=== PATIENT | female | born 1960 | race Caucasian/White ===

== ENCOUNTER 2017-02-15 08:52 | Emergency (ER) | payer OTHER ==
[~2017-02-15] VITALS: Ht 188 cm; Wt 65.9 kg
[~2017-02-15 08:52] MED LIST: CLONAZEPAM1 M1 PO; COL100L PO; LORA-302 PO; MOM PO; TYL325 PO; VICODIN 5-3251 EACH PO
[2017-02-15 08:59] VITALS: BP 151/88; PULSE 89; RESP 20; O2SAT 99
--- NOTE | 2017-02-15 09:09 | ED.REPORT ---
HPI-Extremity Problem Lower Date of Service Feb 15, 2017 ED Provider: Dr. Cm Kelly MD A 56 year old female with no pertinent medical history presents to the ED complaining of left leg redness that first appeared 3 days ago. Patient typically dances 4-5 times per week and initially believed that she pulled a muscle but noticed a blister that appeared a few days ago. Recent associated symptoms include worsening redness, warmth, swelling, pain and a subjective fever. She denies any shaking chills, nausea, vomiting, diarrhea or abdominal pain. Patient denies any sudden onset injury that initiated the pain. Nursing Notes Stated Complaint: LEFT LEG INFECTION Chief Complaint: Extremity Trauma Nursing Notes Reviewed: Yes Allergies: Coded Allergies: Nitrofurantoin Macrocrystal (Verified Allergy, Intermediate, Rash, 02/15/17) Sulfa (Sulfonamide Antibiotics) (Verified Allergy, Unknown, RASH, 02/15/17) Scheduled Cephalexin (Cephalexin) 500 Mg Capsule 500 MG PO QID ClonazePAM-Expunged Drug, Do Not Renew! (ClonazePAM-Expunged Drug, Do Not Renew! ) 1 Mg Tablet 1 MG PO HS Docusate Sod-Expunged Drug, Do Not Renew! (Docusate Sod-Expunged Drug, Do Not Renew!) 10 Mg/1 Ml Liqd 100 MG PO BID Scheduled PRN Acetaminphen-Expunged Drug, Do Not Renew! (Acetaminphen-Expunged Drug, Do Not Renew!) 325 Mg Tablet 0 MG PO Q4H PRN PRN Hydrocod/APAP-Expunged, Do Not Renew! (VICODIN 5/325-Expunged Drug, Do Not Renew ) 1 Each Tablet 0 EA PO Q3H PRN PRN Lorazepam-Expunged Drug, Do Not Renew! (Lorazepam-Expunged Drug, Do Not Renew!) 0.5 Mg Tablet 0 MG PO Q4H PRN PRN Milk Of Magnesia (Milk Of Magnesia) 10 Ml Conc 10 ML PO DAILY PRN PRN General Time Seen by MD: 09:08 Chief Complaint Leg injury left Hx Obtained From: Patient Arrived By: Walk-in Onset Occurred: 3 days ago Symptom Duration: Since onset Location: : Leg left Quality: Painful Severity: Current: Moderate Severity: Maximum: Moderate Associated with: Reports: Fever (subjective), Swelling, Denies: Nausea, Vomiting Pertinent Negative: Pt denies other symptoms Recent Healthcare: No recent doctor visit, No recent hospitalization Past Medical History Past Medical History 1. Anxiety 2. Morbid obesity 3. Alcohol dependency Past Surgical History 1. Open reduction and internal fixation right ankle. 2. Syndesmosis fixation. 3. Medial deltoid ligament reconstruction. Smoking History Unknown if Ever Smoker Social History Other Social History: Good social support, Local resident Ambulatory Status Independent Review of Systems Constitutional: Reports: Chills, Fever (subjective) Musculoskeletal: Reports: Extremity pain (LLE), Extremity swelling (LLE) Skin: Reports Rash, Reports Swelling Complete sys rev & neg: except as marked. GI: Denies: Abdominal pain, Nausea, Vomiting Physical Exam Initial Vital Signs Vital Signs (First) Date Time Temp Pulse Resp B/P Pulse Ox O2 Delivery O2 Flow Rate FiO2 02/15/17 08:59 37.2 89 20 151/88 99 Room Air Initial VS: Reviewed Head / Eyes: Atraumatic, Normocephalic, PERRL Neck: Supple, Non-tender, Full range of motion Upper Extremities: Vascular intact, Neuro intact, No swelling, No tenderness Skin: Warm, Dry, No cyanosis Neurologic: Alert, Oriented, Nonfocal Psychiatric: Mood/affect normal, Behavior normal, Normal thought content Lower Extremity / Pelvis / MS: Atraumatic, Neurologic intact, Vascular intact Left Leg / Calf: Positive: Erythema present, Swelling present..., Tenderness present... (Mild), Warmth present Ankle / Foot: Atraumatic, Inspection NL, No deformity, Neurologic intact, Vascular intact, No ligamentous injury, Tendon function NL General/Constitutional: Awake, Alert, No acute distress, Well appearing, Well developed Respiratory / Chest: Atraumatic, Breath sounds NL, Breath sounds = bilat, No respiratory distress Cardiovascular: Heart rate NL, Regular rhythm, Heart sounds NL Abdomen: Atraumatic, Soft, Non-tender Re-Eval/Medical Decision Re-Evaluation/Progress : Time of Eval: 09:21 Patient Status: Condition improved Re-Evaluation/Progress Note: Her pain has improved upon re-evaluation. Patient is informed of reassuring examination and diagnosis. She understands and agrees with the plan to follow up with her PCP within the next week. Counseled Regarding: Diagnosis, Need for follow-up, When/why to return to ED Discharge & Departure Impression: Primary Impression: Cellulitis Site of cellulitis: extremity Site of cellulitis of extremity: lower extremity Laterality: left Qualified Code: L03.116 - Cellulitis of left lower limb Disposition: Home Discharge Condition All VS Reviewed: Yes Condition: Improved Patient Instructions: Cellulitis (ED) Additional Instructions: Thank you for trusting us with your care this morning. Your emergency department examination is indicative of cellulitis. Please take the full course of 500 cephalexin as directed (4 times a day for 10 days). You received your first dose here in the emergency department. Your leg will likely appear worse before it appears better but should begin to improve within the next 2 days. I recommend that you your limit activity for the next 2 days and keep your leg elevated (higher than your heart). Take ibuprofen as directed for pain. Schedule a follow up appointment with your primary care physician in the next week for a recheck. Please return to the emergency department if you begin to develop any new or worsening conditions including any high fever, shaking chills, nausea, vomiting , worsening pain, swelling, redness or weakness in the extremity. Referrals: Rea Worrell (PCP) Lisandraibe Attestation Portions of this note were transcribed by Shakila Gottlieb. I, Dr. Kelly personally performed the history, physical exam and medical decision-making; I reviewed and confirmed the accuracy of the information in the transcribed note. Signed by: Travis Arce, 02/15/17 0930. copies to: Rea Worrell Kirk H MD Feb 15, 2017 09:09 SHAKILA GOTTLIEB Feb 15, 2017 09:13
[2017-02-15] MEDS ORDERED: CEPH500C PO (09:29)
[2017-02-15] MEDS ORDERED: FLUC150T48 PO (09:49)
== END 2017-02-15 09:50 | disposition home or self-care (01) ==
LOC: SED 08:52
DX: L03.116 Cellulitis of left lower limb (principal); R50.9 Fever, unspecified; Z88.2 Allergy status to sulfonamides; Z88.8 Allergy status to other drugs, medicaments and biological substances